=== PATIENT | male | born 1930 | race Hispanic/Latino ===

== ENCOUNTER 2019-06-22 09:54 | Emergency (ER) | payer MEDICARE ==
[2019-06-22 10:32] LABS: Bilirubin Small (Negative); Blood, Urine Large (Negative); Clarity Cloudy (Clear); Glucose, Urine (Dipstick) Negative (Negative); Leukocyte Negative (Negative); Nitrite Negative (Negative); Protein, Urine (Dipstick) 100 mg/dL (Neg-Trace)
[2019-06-22 10:45] LABS: Bacteria/HPF Rare-Few HPF (None Seen); RBC/HPF Greater than 50 HPF (0-3); Squamous Epithelial 0-3 HPF (0-3); WBC/HPF 0-3 HPF (0-3)
== END 2019-06-22 11:04 | disposition home or self-care (01) ==
LOC: NAV ERS 09:54
DX: R31.9 Hematuria, unspecified (principal); I10 Essential (primary) hypertension; F31.9 Bipolar disorder, unspecified; Z79.899 Other long term (current) drug therapy
CPT/HCPCS: 81003; 81015; 87077; 87086; 99283